=== PATIENT | male | born 1990 | race Caucasian/White ===

== ENCOUNTER 2018-05-24 08:29 | Day surgery (SDC) | payer OTHER ==
[~2018-05-24 08:29] MED LIST: Buffered Lidocaine 0.9% SYRIN* 5 ML/SYR SYRINGE INTRADERM ONE
[2018-05-24] MEDS ORDERED: ceFAZolin 2 GM in NS PREMIX(*) 2 GM/100 ML BAG IVPB ONE (08:34)
[2018-05-24] MEDS ORDERED: Methylene Blue 0.5 %* 50 MG/10 ML AMP IV ONE (09:58)
[2018-05-24] MEDS ORDERED: Mineral Oil Sterile, TOPICAL* 25 ML BTL ONE (09:59)
[2018-05-24] MEDS ORDERED: Lidocain 1% EPI 1:100,000 * 30 ML MDV ONE (09:59)
[2018-05-24] MEDS ORDERED: Midazolam* 1 MG/ML 5 ML VIAL (5 MG) ONE (10:03)
[2018-05-24] MEDS ORDERED: fentaNYL* 50 MCG/ML 2 ML VIAL (100 MCG VIAL) ONE (10:03)
[2018-05-24] MEDS ORDERED: Propofol* 10 MG/ML 20 ML BTL IV PUSH ONE ×2 (10:20→11:43)
[2018-05-24] MEDS ORDERED: Lidocaine 2% PF * 5 ML VIAL ONE (10:20)
[2018-05-24] MEDS ORDERED: Naloxone* 0.4 MG/ML 1 ML VIAL IV PRN (10:42)
[2018-05-24 13:04] VITALS: BP 123/75
--- NOTE | 2018-05-25 12:07 | OP ---
CC: Dr. Beena Marquez * DATE OF OPERATION: 05/24/18 - [facility] DATE OF : 89 SURGEON: Lul Moran MD CASH CONTROLLER: Sita Marquez. ANESTHESIOLOGIST: Yovani Wallis DO ANESTHESIA: Local MAC. PRE-OP DIAGNOSIS: Multiple keloids, left ear. POST-OP DIAGNOSIS: Multiple keloids, left ear. OPERATIVE PROCEDURE: Excision of multiple keloids, left ear, reconstruction with wide undermining and linear closure and full-thickness skin graft from the left supraclavicular neck. INDICATIONS: The patient is a 27-year-old white male who underwent multiple piercings in his left ear, including the left ear lobule as well as the cartilaginous portion of the ear, from ages 19 to 23. He started developing enlarging keloids around age 22. He stopped wearing earrings at age 24. He denies any recent changes in the keloids. Preoperative examination of left ear demonstrates 5 large keloids measuring 2.6 x 1.9 x 1.4 cm on the posterior ear lobule, 2.0 x 2.2 x 0.8 cm on the anterior superior helix area, 2.3 x 1.8 x 0.8 cm on the anterior inferior helix area, 3.0 x 1.5 x 1.8 cm on the posterior superior helix, and 2.4 x 1.3 x 1.4 cm on the posterior inferior helix area. ESTIMATED BLOOD LOSS: Minimal. SPECIMENS: Five keloids from the left ear. DRAINS: None. COMPLICATIONS: None. DESCRIPTION OF PROCEDURE: The patient was brought to the operating room and placed on the operating table in supine position. The patient was given intravenous sedation by Dr. Wallis. The areas were prepped and draped sterilely. The area was locally infiltrated with 0.5% Lidocaine with epinephrine 1:200,000. The 5 keloids were excised from the left ear using sharp dissection with scalpel taking narrow gross margins. The defects on the left ear lobule as well as the posterior helix areas on the ear were repaired by wide undermining at the subcutaneous level to obtain low-tension wound closure. Linear wound closure was achieved with buried subcutaneous sutures of 4-0 Vicryl. Dog ears were excised and skin closed with interrupted and running sutures of 5-0 and 6-0 nylon. The defects on the anterior surface of the ear, involving the helix and scapha, were too extensive to close primarily and were therefore closed with full-thickness skin graft harvested from the left supraclavicular neck area. The total area skin grafted measured approximately 2 x 1 cm. Skin graft was harvested from the left supraclavicular neck area after first infiltrating the area with 0.5% lidocaine with epinephrine 1:200, 000 solution, harvesting the graft in a fusiform elliptical fashion at the superficial subcutaneous level. The skin donor site was closed with buried deep dermal sutures of 3-0 Vicryl and the skin closed with running 4-0 Monocryl. The area was later dressed with DermaFlex, Steri-Strips, gauze, and tape. The skin graft was defatted with scissors, trimmed appropriately, and then inset into the defect with interrupted sutures of 4-0 silk, with the ends left long for tie-over bolus dressing. In addition, circumferential running suture of 5-0 Vicryl Rapide was placed. The skin graft recipient site was then dressed with Xeroform and then cotton soaked in mineral oil and saline applied and then the silk sutures tied down for a tie-over bolster dressing. The ear was then further dressed with Xeroform packing, fluff gauze, and then circumferential head wrap dressing applied. The patient tolerated the procedure well. There were no complications. All counts were reported as correct at the end of the procedure. The patient was taken to the recovery area in stable postoperative condition. [id number]/[facility] #: [id number] [facility]
== END 2018-05-24 13:12 | disposition home or self-care (01) ==
LOC: OR 08:29
PROVIDERS: ATTEND Plastic Surgery
DX: L91.0 Hypertrophic scar (principal); J45.909 Unspecified asthma, uncomplicated; K21.9 Gastro-esophageal reflux disease without esophagitis; Z68.36 Body mass index [BMI] 36.0-36.9, adult
CPT/HCPCS: 88304; A9270-GY; J0690; J2250; J2704; J3010